=== PATIENT | female | born 1970 | race Caucasian/White ===

== ENCOUNTER 2016-10-05 18:50 | Emergency (ER) | payer BC, OTHER ==
[2016-10-05] MEDS ORDERED: ONDANSETRON HCL IV 4 MG/2 ML VIAL IVP ONE ×2 (19:10→21:31)
[2016-10-05] MEDS ORDERED: MORPHINE SULFATE 5 MG/ML PFS IVP ONE ×3 (19:10→22:46)
[2016-10-05] MEDS ORDERED: 0.9 % SODIUM CHLORIDE 1000ML 1,000 ML IV SCH ×3 (19:15→22:15)
--- NOTE | 2016-10-05 19:15 | Emergency Department Record ---
History of Present Illness - General Chief Complaint: Abdominal Pain Stated Complaint: ABD PAIN Time Seen by Provider: 10/05/16 19:10 Source: Patient Mode of Arrival: EMS Limitations: No limitations - History of Present Illness Initial Comments: 46 yo female presents to ED with an 8-hour history of epigastric pain, nausea, and vomiting symptoms. Patient reports that her pain initially began to improve this afternoon, however worsened this evening. Patient is s/p appy, BARBER , reports that her gallbladder is still present. Patient denies alcohol use. Patient reports a history of MS, HTN, and DM. Patient denies fevers, chills, or other recent illness prior to today's symptoms. MD Complaint: Abdominal pain Onset/Timin -: Hour(s) Location: Epigastric, RUQ Radiation: Epigastric, RUQ Migration to: No migration Severity: Moderate Quality: Sharp, Stabbing Consistency: Intermittent Improves With: Nothing Worsens With: Nothing Associated Symptoms: Nausea, Vomiting - Related Data Patient : No Previous Rx's Medication Instructions Recorded Clindamycin HCl [Cleocin HCl] 300 mg PO Q6H #40 cap 03/14/14 Allergies Allergy/AdvReac Type Severity Reaction Status Date / Time phenazopyridine HCl Allergy ITCHING Verified 02/03/14 15:30 [From Pyridium] codeine AdvReac Intermediate RASH Verified 02/03/14 15:30 morphine AdvReac Intermediate RASH Verified 02/03/14 15:30 propoxyphene HCl AdvReac Intermediate NAUSEA Verified 02/03/14 15:30 [From Darvon] Sulfa (Sulfonamide AdvReac Intermediate RASH Verified 02/03/14 15:30 Antibiotics) Travel Screening - Travel/Exposure Within Last 30 Days Have you traveled within the last 30 days?: No - Travel/Exposure Within Last Year Have you traveled outside the [place] in the last year?: No - Additonal Travel Details Have you been exposed to anyone with a communicable illness?: No - Travel Symptoms Symptom Screening: None Review of Systems Constitutional: Denies: Chills, Fever, Malaise, Night sweats Eyes: Denies: Eye discharge, Eye pain ENT: Denies: Congestion, Ear pain, Epistaxis Respiratory: Denies: Cough, Dyspnea Cardiovascular: Denies: Chest pain, Dyspnea on exertion Endocrine: Denies: Fatigue, Heat or cold intolerance Gastrointestinal: Reports: Abdominal pain, Nausea, Vomiting Genitourinary: Denies: Incontinence, Retention Musculoskeletal: Denies: Arthralgia, Back pain, Gout, Joint swelling Skin: Denies: Bruising, Change in color Neurological: Denies: Abnormal gait, Confusion, Headache, Tingling Psychiatric: Denies: Anxiety Hematological/Lymphatic: Denies: Anemia, Blood Clots Past Medical History - SOCIAL HISTORY Smoking Status: Never smoker Alcohol Use: None Drug Use: None - RESPIRATORY Hx Respiratory Disorders: No - CARDIOVASCULAR Hx Cardio Disorders: Yes Hx Hypertension: Yes - NEURO Hx Neuro Disorders: Yes Comment:: Multiple Sclerosis for 11 years - GI Hx GI Disorders: No - Hx Genitourinary Disorders: No - ENDOCRINE Hx Endocrine Disorders: Yes Hx Diabetes: Yes - MUSCULOSKELETAL Hx Musculoskeletal Disorders: No - PSYCH Hx Anxiety: Yes Hx Depression: Yes Comment:: Bipolar - HEMATOLOGY/ONCOLOGY Hx Hematology/Oncology Disorders: No Family Medical History Any Significant Family History?: No Hx Cancer: Grandparents Hx Diabetes: Father, Mother Physical Exam - General General Appearance: Alert, Oriented x3, Cooperative, Moderate distress (due to her pain symptoms) Limitations: No limitations - Head Head exam: Atraumatic, Normocephalic, Normal inspection Head exam detail: negative: Abrasion, Contusion, Cardona's sign, General tenderness, Hematoma, Laceration - Eye Eye exam: Normal appearance. negative: Conjunctival injection, Periorbital swelling, Periorbital tenderness, Scleral icterus - ENT Ear exam: negative: Auricular hematoma, Auricular trauma Nasal Exam: negative: Active bleeding, Discharge, Dried blood, Foreign body Mouth exam: negative: Drooling, Laceration, Tongue elevation - Neck Neck exam: Normal inspection. negative: Meningismus, Tenderness - Respiratory Respiratory exam: Normal lung sounds bilaterally. negative: Respiratory distress, Rhonchi, Stridor - Cardiovascular Cardiovascular Exam: Regular rate, Normal rhythm, Normal heart sounds - GI/Abdominal GI/Abdominal exam: Soft, Tenderness (Moderate to severe TTP to the epigastric region with guarding present). negative: Distended, Rebound, Rigid - Rectal Rectal exam: Deferred - exam: Deferred - Extremities Extremities exam: Normal inspection. negative: Calf tenderness, Pedal edema, Tenderness - Back Back exam: Denies: CVA tenderness (R), CVA tenderness (L) - Neurological Neurological exam: Alert, Oriented X3. negative: Motor sensory deficit - Psychiatric Psychiatric exam: Anxious - Skin Skin exam: Normal color. negative: Abrasion Type of lesion: negative: abrasion Course Vital Signs 10/05/16 18:57 Temperature 99.5 F Pulse Rate 98 H Respiratory 20 Rate Blood Pressure 114/80 Pulse Ox 97 - Reevaluation(s) Reevaluation #1: 10/05/16 19:44 Initial laboratory studies reviewed, WBC 16.1, Hgb 21, HCT 47. CO2 14 with AG 20, Glucose 341. BUN/Creatinine are normal. MDM: Labs suggest the possibleity of DKA, 2nd Liter NS ordered along with venous pH and Ketones, Lactic Acid. ELevated Hgb likely due to dehydration, ? mesenteric ischemia? Reevaluation #2: 10/05/16 20:22 Lipase has resulted at 22,428. Venous pH and Ketones are pending. Reevaluation #3: 10/05/16 21:07 CT Abdomen and Pelvis: Findings are c/w acute pancreatitis, duodenal wall thickening, fatty liver. Reevaluation #4: 10/05/16 21:21 Case was discussed with Dr. Gandara, will accept transfer for close observation of DKA and pancreatitis. Medical Decision Making - Lab Data Result diagrams: 10/05/16 18:51 10/05/16 18:51 Critical Care Time Critical Care Time: Yes Total Critical Care Time: 60 Critical Care Time: Diagnosis and treatment of mild DKA, pancreatitis, and initiation of transfer to [facility] for admission. Disposition Disposition: Transfer Clinical Impression: Pancreatitis Qualifiers: Chronicity: acute Pancreatitis type: unspecified pancreatitis type Acute pancreatitis complication: unspecified Qualified Code(s): K85.90 - Acute pancreatitis without necrosis or infection, unspecified DKA (diabetic ketoacidoses) Qualifiers: Diabetes mellitus type: type 1 Diabetes mellitus complication detail: without coma Qualified Code(s): E10.10 - Type 1 diabetes mellitus with ketoacidosis without coma Disposition: Acute Care Hospital Transfer Transfer To: [facility] Reason For Transfer: DKA, pancreatitis Accepting Physician: Juliocesar Time Discussed w/Accepting Physician: 21:22 Condition: (2) Stable Forms: Patient Portal Access Time of Disposition: 21:22 Quality - Quality Measures Quality Measures: N/A - Blood Pressure Screening Does Patient Have Any of the Following: No Blood Pressure Classification: Pre-Hypertensive BP Reading Systolic Measurement: 114 Diastolic Measurement: 80 Screening for High Blood Pressure: < Pre-Hypertensive BP, F/U Documented > [ [id number]] Pre-Hypertensive Follow-up Interventions: Referral to alternative/primary care provider.
[2016-10-05 19:26] LABS: URINE APPEARANCE CLEAR; URINE BILIRUBIN NEGATIVE (NEGATIVE); URINE BLOOD TRACE-I (NEGATIVE); URINE COLOR YELLOW; URINE KETONE NEGATIVE (NEGATIVE); URINE LEUKOCYTE ESTERASE NEGATIVE (NEGATIVE); URINE NITRITE NEGATIVE (NEGATIVE); URINE PROTEIN NEGATIVE (NEGATIVE); URINE UROBILINOGEN 0.2 E.U./dL (0.20 - 1.00)
[2016-10-05 19:29] LABS: URINE GLUCOSE (UA) >=1000 mg/dL (NEGATIVE)
[2016-10-05 19:33] LABS: HEMATOCRIT 47.3 % (35.0-47.0); HEMOGLOBIN 21.1 gm/dl (11.6-16.0); MEAN CELL VOLUME 80.2 fl (81-97); MEAN CORPUSCULAR HGB CONC 44.6 g/dl (32-36); PLATELET COUNT 375 K/uL (130-400); WHITE BLOOD COUNT W/O DIFF 16.1 K/uL (4.2-12.2)
[2016-10-05 19:34] LABS: ALB/GLOB RATIO 0.6 (1.1-1.8); ALBUMIN 3.1 gm/dL (3.5-5.0); ALKALINE PHOSPHATASE 137 U/L (38-126); ALT/SGPT 44 U/L (9-52); AST/SGOT 41 U/L (14-36); BILIRUBIN,TOTAL 1.42 mg/dL (0.2-1.3); BLOOD UREA NITROGEN 13 mg/dL (7-17); CREATININE 0.5 mg/dL (0.52-1.04); EST GLOMERULAR FILTRATION RATE > 60 ml/min; GLUCOSE,RANDOM 341 mg/dL (70-110); TOTAL PROTEIN 8.4 gm/dL (6.3-8.2)
[2016-10-05 19:35] LABS: MEAN CORPUSCULAR HEMOGLOBIN 35.7 pg (27-33)
[2016-10-05 19:36] LABS: MEAN PLATELET VOLUME 9.9 fl (7.4-10.4)
[2016-10-05 19:40] LABS: URINE BACTERIA FEW; URINE RBC 0 - 2 (NONE SEEN); URINE SQUAMOUS EPITHELIAL CELL 0 - 2 /hpf; URINE WBC 0 - 2 (0-2/hpf)
[2016-10-05 20:21] LABS: LIPASE 22428 U/L (23-300)
[2016-10-05 20:48] LABS: ACETONE,SERUM NEGATIVE (NEGATIVE)
--- NOTE | 2016-10-06 09:17 | CT SCAN REPORT ---
EXAM: CT OF THE ABDOMEN AND PELVIS HISTORY: ABDOMINAL PAIN. TECHNIQUE: CT of the abdomen and pelvis was performed following IV administration of 100 ml of Omnipaque 300 contrast. Lack of oral contrast limits evaluation of bowel. Comparison: None. FINDINGS: Limited evaluation of the lung bases shows subsegmental atelectasis in each lung base. Calcified right hilar lymph nodes. The osseous structures are grossly intact. Diffuse fatty infiltrative change to the liver. The gallbladder is present. The spleen, adrenal glands, and kidneys are unremarkable. Diffuse heterogeneity of the pancreas with extensive peripancreatic inflammatory changes consistent with pancreatitis. In addition there is reactive wall thickening of the duodenum consistent with reactive duodenitis. No discreet abscess. No free air or free fluid. No gross evidence for bowel obstruction. IMPRESSION: 1. ACUTE PANCREATITIS WITH REACTIVE DUODENITIS. 2. FATTY INFILTRATIVE CHANGE TO THE LIVER. JOB NUMBER: [id number] MTDD
== END 2016-10-05 22:56 | disposition short-term general hospital (02) ==
LOC: ER 18:50
DX: E10.10 Type 1 diabetes mellitus with ketoacidosis without coma (principal); K85.90 Acute pancreatitis without necrosis or infection, unspecified; R11.2 Nausea with vomiting, unspecified; G35 Multiple sclerosis; I10 Essential (primary) hypertension
CPT/HCPCS: 99285 ×2; 96376; 96374; 96375; 96361; 83605; 82800; 83690; 80053; 36416; 81001; 82009; 82948; 81025; 85027; 74177; Q9967; J2405; J2270; J7030